=== PATIENT | female | born 1950 | race Caucasian/White ===

== ENCOUNTER 2024-05-02 10:55 | Emergency (ER) | payer OTHER, MEDICAID ==
[~2024-05-02] VITALS: Ht 162.6 cm; Wt 77.0 kg
[2024-05-02 10:57] VITALS: O2SAT 96
[2024-05-02 11:15] VITALS: TEMP 98.2
[2024-05-02] MEDS: ACETAMINOPHEN 500MG TABLET PO ONE (11:15)
[2024-05-02] MEDS: IBUPROFEN 600MG TABLET PO ONE (11:15)
[2024-05-02] MEDS ORDERED: IBUP-2028 MT (13:43)
[2024-05-02 14:04] VITALS: BP 109/65; PULSE 99; RESP 16
== END 2024-05-02 14:07 | disposition home or self-care (01) ==
LOC: ER 10:55
DX: R07.81 Pleurodynia (principal); E11.9 Type 2 diabetes mellitus without complications; I10 Essential (primary) hypertension
CPT/HCPCS: 71101; 99283